=== PATIENT | female | born 1980 | race American Indian/Alaskan Native ===

== ENCOUNTER 2017-07-30 19:27 | Emergency (ER) | payer OTHER ==
[~2017-07-30] VITALS: Ht 177.8 cm; Wt 65.8 kg
[~2017-07-30 19:27] MED LIST: ACET325 PO; ACETAMINOPHEN; ALBU.083IS IH; ALBU8HFA2 INH; ALBU90OI INH; AMOCLA500 PO; AMOCLA875 PO; ARIP10 PO; AZIT250; AZIT250 PO; BENTYL10 MG; BENTYL20 MG PO; BENZ100A PO; BIRTH CONTROL PILLS PO; BUPR75 PO; BUSP10; BUSP15; BUTONI; CAFFEI; CELE100; CELE200; CEPH500 PO; CETI10 PO; CETI5; CETI5 PO; CETIRIZINE; CIPR500 PO; CLON.3; CLON.5; CLON.5 PO; CLON1; CLON2; CODACE30 PO; CODACE60; CODBUTASA PO; COUGH MED; CRUTCH3 USE; CRUTCH4 USE; CYCL10; CYCL10 PO; Cipro500 MG PO; DIAZ10; DIAZ5; DIAZ5 PO; DIPATR PO; DIPH50 PO; DOXY100 PO; DULO30; DULO30 PO; DULO60; DULO60 PO; EPIN.3I IM; Epipen0.3 MG/0.3 IM; FAMO20 PO; FLUC150A PO; FLUT110OIA IH; FLUT220OIA IH; FLUT220OIA INH; Flovent Disku100 MCG INH; Flovent Disku250 MCG; GABA100; GABA300; GABA300 PO; GABA600 PO; GARCINIA CAMBO1 EACH; HYDACE5 PO; HYDACE7.5 PO; HYDHCL25 PO; HYDMOR2 PO; HYDMOR4; HYDR1TAB94 PO; HYOS.125 SL; IBUP200; IBUP600 PO; IBUP800; IBUP800 PO; KETO10 PO; LEVE500 PO; LOPE2C PO; LORA1 PO; MAGCIT300 PO; MAXALT PO; MECL12.5; MECL25; MECL25 PO; MEDR10 PO; MEDR5 PO; MELA3 MT; METH10; METO5A; METPRE4DP PO; MIRALAX17 GM; MONT10T; MONT10T PO; MONT5TCH PO; MULVITMIND PO; MULVITMINE; MULVITMINE PO; Mobic15 MG PO; Monodox100 MG PO; NAPR250; NAPR500 PO; NAPR500EC PO; NIFE20; NIFE30ER PO; NITR100CA PO; NORFLEX PO; OMEP20ER PO; OMEP40CA12 PO; ONDA4 PO; ONDA4ODT MM; ONDA8 PO; OSEL75CA PO; OXYACE10; OXYACE10 PO; OXYACE5T; OXYACE5T PO; OXYACE7.5T PO; Omeprazole20 M1; Omeprazole20 M1 PO; PARO20; PENVK500 PO; PHENA200 PO; PRAM.125; PRED20; PRED20 PO; PREG50; PREG75 PO; PROACE100 PO; PROC10 PO; PROC5 PO; PROM25; PROM25 PO; PROM25S PR; PROP10 PO; PROPRANOLOL PO; Pepcid20 MG PO; Prednisone20 MG PO; RANI150; RANI150 PO; RXCODACET PO; RXCYCL10 PO; RXHYDMOR2 PO; RXOXYACE PO; RXPROM25 PO; SERT50 PO; SOMA350 MG; SOMA350 MG PO; SUBOXONE 8 MG-1 EACH SL; SUCR1 PO; SULTRIDS PO; Sudogest30 MG PO; TAMS.4ER PO; TOBR.3OPSO OP; TOPI100 PO; TOPI25 PO; TRAM50; TRAM50 PO; TRAZ100; TRAZ100 PO; TRAZ50 PO; VENL37.5; VENL37.5ER; VENL75ER; Ventolin Soln3 ML INH; Ventolin/Prove6.7 GM INH; Vibramycin100 MG PO; ZALE5 PO; ZOLP10; ZOLP10 PO; Zithromax250 MG PO; Zofran Odt4 MG SL; Zofran4 MG PO; [UNRECOGNIZED DRUG - OTHER]
[2017-07-30] MEDS ORDERED: SUBOXONE 12 MG1 EACH SL (20:14)
[2017-07-30] MEDS ORDERED: NAPR220 PO (20:14)
[2017-07-30] MEDS ORDERED: PENVK500 PO (20:53)
[2018-03-26] MEDS ORDERED: Bactrim Ds Tab1 EACH PO (09:38)
[2018-03-26] MEDS ORDERED: KETO10 PO (09:38)
[2018-03-26] MEDS ORDERED: Zofran Odt4 MG SL (09:38)
[2018-03-31] MEDS ORDERED: Cipro500 MG PO (15:06)
== END 2017-07-30 20:57 | disposition home or self-care (01) ==
LOC: ER 19:27
DX: K08.89 Other specified disorders of teeth and supporting structures (principal); Z91.030 Bee allergy status; Z88.8 Allergy status to other drugs, medicaments and biological substances; Z79.899 Other long term (current) drug therapy; G43.909 Migraine, unspecified, not intractable, without status migrainosus; J45.909 Unspecified asthma, uncomplicated; F17.200 Nicotine dependence, unspecified, uncomplicated
CPT/HCPCS: 99282

== ENCOUNTER → 2018-01-23 | Outpatient (CLI) | payer OTHER ==
[~2018-01-23] MED LIST changes: +NAPR220 PO; +SUBOXONE 12 MG1 EACH SL
[2018-01-23 16:25] LABS: Source, Urine Clean Catch
[2018-01-23 18:17] LABS: Appearance, Urine Clear (Clear); Bilirubin, Urine Neg (Neg); Blood, Urine Neg (Neg); Color, Urine Yellow (P-Yellow); Glucose Qualitative, Urine Neg (Neg); Ketones, Urine Neg (Neg); Leukocyte Esterase, Urine Neg (Neg); Nitrite, Urine Neg (Neg); Protein, Urine 1+ (Neg); Urobilinogen, Urine 1+ (Normal)
== END | disposition home or self-care (01) ==
LOC: LAB SHORT 13:19 → LAB 13:19
PROVIDERS: Obstetrics & Gynecology
DX: Z09 Encounter for follow-up examination after completed treatment for conditions other than malignant neoplasm (principal); Z87.442 Personal history of urinary calculi
CPT/HCPCS: 81003

== ENCOUNTER 2018-07-06 12:24 | Emergency (ER) | payer BC, OTHER ==
[~2018-07-06] VITALS: Ht 177.8 cm; Wt 56.7 kg
[~2018-07-06 12:24] MED LIST changes: +Bactrim Ds Tab1 EACH PO
[2018-07-06 13:16] LABS: Source, Urine Clean Catch
[2018-07-06 13:22] LABS: Alanine Aminotransfer (ALT/SGP 19 U/L (12-78); Albumin, Blood 3.8 g/dL (3.4-5.0); Albumin/Globulin Ratio 1.2 (0.8-1.8); Alk Phos 54 U/L (50-136); Anion Gap 5 mmol/L (6-16); Aspartate Aminotrans (AST/SGOT 17 U/L (12-37); Bilirubin, Total 0.3 mg/dL (0.1-1.0); Blood Urea Nitrogen 13 mg/dL (8-24); Bun/Creatinine Ratio 16.3 (12.0-20.0); CO2, Blood 28 mmol/L (21-32); Calcium, Blood 7.8 mg/dL (8.5-10.1); Chloride, Blood 109 mmol/L (98-108); Globulin, Blood 3.3 g/dL (2.2-4.0); Glomerular Filtration Rate >60 (60-); Glucose, Blood 52 mg/dL (70-99); Potassium, Blood 3.4 mmol/L (3.5-5.5); Sodium, Blood 142 mmol/L (136-145); Total Protein, Blood 7.1 g/dL (6.4-8.2)
[2018-07-06 13:29] LABS: BASOPHILS ABSOLUTE AUTO 0.05 K/mm3 (0.00-0.23); BASOPHILS PERCENT AUTO 1 % (0-2); EOSINOPHILS ABSOLUTE AUTO 0.73 K/mm3 (0.00-0.68); EOSINOPHILS PERCENT AUTO 12 % (0-6); Hematocrit 39.2 % (33.0-51.0); Hemoglobin 12.3 g/dL (11.5-16.0); IMMATURE GRAN ABSOLUTE AUTO 0.01 K/mm3 (0.00-0.10); IMMATURE GRAN PERCENT AUTO 0 % (0-1); LYMPHOCYTES ABSOLUTE AUTO 2.67 K/mm3 (0.84-5.20); LYMPHOCYTES PERCENT AUTO 42 % (21-46); MONOCYTES ABSOLUTE AUTO 0.47 K/mm3 (0.16-1.47); MONOCYTES PERCENT AUTO 8 % (4-13); Mean Corpuscular HGB 26.7 pg (26.0-34.0); Mean Corpuscular HGB Conc 31.4 g/dL (31.5-36.5); Mean Corpuscular Volume 85 fL (80-100); Mean Platelet Volume 10.8 fL (9.1-12.4); NEUTROPHILS ABSOLUTE AUTO 2.37 K/mm3 (1.96-9.15); NEUTROPHILS PERCENT AUTO 38 % (41-73); Platelet Count 213 K/mm3 (150-400); RDW Coefficient Variation 12.7 % (11.7-14.2); RDW Standard Deviation 38.8 fL (35.1-46.3)
[2018-07-06 13:33] LABS: Appearance, Urine Clear (Clear); Bilirubin, Urine Neg (Neg); Blood, Urine Neg (Neg); Color, Urine Yellow (P-Yellow); Glucose Qualitative, Urine Neg (Neg); Ketones, Urine Neg (Neg); Leukocyte Esterase, Urine Neg (Neg); Nitrite, Urine Neg (Neg); Protein, Urine 1+ (Neg); Urobilinogen, Urine 1+ (Normal); pH, Urine 6.5 (5.0-8.0)
[2018-07-06] MEDS ORDERED: Dulcolax5 MG PO (15:24)
== END 2018-07-06 15:43 | disposition home or self-care (01) ==
LOC: ER 12:24
PROVIDERS: Physician Assistant
DX: N83.202 Unspecified ovarian cyst, left side (principal); G40.909 Epilepsy, unspecified, not intractable, without status epilepticus; F32.9 Major depressive disorder, single episode, unspecified; K21.9 Gastro-esophageal reflux disease without esophagitis; J45.909 Unspecified asthma, uncomplicated; F17.200 Nicotine dependence, unspecified, uncomplicated; Z87.442 Personal history of urinary calculi; Z79.899 Other long term (current) drug therapy
CPT/HCPCS: 36415; 74018; 76830; 76856; 80053; 84703; 85025; 96374; 96375; 99284-25; J1885; J2405

== ENCOUNTER 2019-08-30 19:46 | Emergency (ER) | payer BC ==
[~2019-08-30] VITALS: Ht 177.8 cm; Wt 70.3 kg
[~2019-08-30 19:46] MED LIST changes: +Dulcolax5 MG PO
[2019-08-30] MEDS ORDERED: DESV50 PO (19:54)
[2019-08-30 20:43] LABS: BASOPHILS ABSOLUTE AUTO 0.05 K/mm3 (0.00-0.23); BASOPHILS PERCENT AUTO 1 % (0-2); EOSINOPHILS ABSOLUTE AUTO 1.27 K/mm3 (0.00-0.68); EOSINOPHILS PERCENT AUTO 18 % (0-6); Hematocrit 38.9 % (33.0-51.0); Hemoglobin 12.3 g/dL (11.5-16.0); IMMATURE GRAN ABSOLUTE AUTO 0.01 K/mm3 (0.00-0.10); IMMATURE GRAN PERCENT AUTO 0 % (0-1); LYMPHOCYTES ABSOLUTE AUTO 2.99 K/mm3 (0.84-5.20); LYMPHOCYTES PERCENT AUTO 42 % (21-46); MONOCYTES ABSOLUTE AUTO 0.44 K/mm3 (0.16-1.47); MONOCYTES PERCENT AUTO 6 % (4-13); Mean Corpuscular HGB 26.9 pg (26.0-34.0); Mean Corpuscular HGB Conc 31.6 g/dL (31.5-36.5); Mean Corpuscular Volume 85 fL (80-100); NEUTROPHILS ABSOLUTE AUTO 2.45 K/mm3 (1.96-9.15); NEUTROPHILS PERCENT AUTO 34 % (41-73); Platelet Count 208 K/mm3 (150-400); RDW Coefficient Variation 13.1 % (11.7-14.2); RDW Standard Deviation 40.7 fL (35.1-46.3); Red Blood Cell Count 4.57 M/mm3 (3.80-5.20); White Blood Cell Count 7.21 K/mm3 (4.00-11.30)
[2019-08-30 21:02] LABS: Alanine Aminotransfer (ALT/SGP 19 U/L (12-78); Albumin, Blood 3.5 g/dL (3.4-5.0); Albumin/Globulin Ratio 1.1 (0.8-1.8); Alk Phos 50 U/L (50-136); Anion Gap 4 mmol/L (6-16); Aspartate Aminotrans (AST/SGOT 22 U/L (12-37); Bilirubin, Total 0.2 mg/dL (0.1-1.0); Blood Urea Nitrogen 11 mg/dL (8-24); Bun/Creatinine Ratio 17.3 (12.0-20.0); CO2, Blood 29 mmol/L (21-32); Calcium, Blood 8.3 mg/dL (8.5-10.1); Chloride, Blood 107 mmol/L (98-108); Creatinine, Blood 0.64 mg/dL (0.40-1.00); Globulin, Blood 3.3 g/dL (2.2-4.0); Glomerular Filtration Rate >60 (60-); Glucose, Blood 101 mg/dL (70-99); Potassium, Blood 3.7 mmol/L (3.5-5.5); Sodium, Blood 140 mmol/L (136-145); Total Protein, Blood 6.8 g/dL (6.4-8.2)
[2019-08-30] MEDS ORDERED: ALBU90OI INH (21:13)
[2019-08-30] MEDS ORDERED: ONDA4ODT MM (21:13)
== END 2019-08-30 21:20 | disposition home or self-care (01) ==
LOC: ER 19:46
PROVIDERS: Nurse Practitioner
DX: J06.9 Acute upper respiratory infection, unspecified (principal); J45.909 Unspecified asthma, uncomplicated; F17.200 Nicotine dependence, unspecified, uncomplicated; Z88.1 Allergy status to other antibiotic agents; Z88.5 Allergy status to narcotic agent; Z88.8 Allergy status to other drugs, medicaments and biological substances; Z91.030 Bee allergy status; Z79.899 Other long term (current) drug therapy
CPT/HCPCS: 36415; 71046; 80053; 85025; 96374; 99283-25; J2405

== ENCOUNTER → 2019-10-20 | Outpatient (CLI) | payer BC ==
[~2019-10-20] MED LIST changes: +DESV50 PO
[2019-10-20 12:12] LABS: Appearance, Urine Hazy (Clear); Bilirubin, Urine Neg (Neg); Blood, Urine 2+ (Neg); Color, Urine Yellow (P-Yellow); Glucose Qualitative, Urine Neg (Normal); Ketones, Urine Neg (Neg); Leukocyte Esterase, Urine Neg (Neg); Nitrite, Urine Neg (Neg); Protein, Urine Neg (Neg); Specific Gravity, Urine 1.015 (1.003-1.022); Urobilinogen, Urine 1+ (Normal)
[2019-10-20 12:13] LABS: Bacteria Few /hpf; Red Blood Cells, Urine 50-100 /hpf (0-2); Squamous Epithelial Cells Few /hpf (Few); White Blood Cells, Urine 0-2 /hpf (0-5)
== END | disposition home or self-care (01) ==
LOC: LAB SHORT 11:45 → LAB EV 11:45
PROVIDERS: Family Medicine
DX: R31.9 Hematuria, unspecified (principal)
CPT/HCPCS: 81001; 87086

== ENCOUNTER 2019-12-06 20:04 | Emergency (ER) | payer BC ==
[~2019-12-06] VITALS: Ht 177.8 cm; Wt 70.3 kg
[2019-12-06 20:43] LABS: BASOPHILS ABSOLUTE AUTO 0.06 K/mm3 (0.00-0.23); BASOPHILS PERCENT AUTO 1 % (0-2); EOSINOPHILS ABSOLUTE AUTO 0.94 K/mm3 (0.00-0.68); EOSINOPHILS PERCENT AUTO 12 % (0-6); Hematocrit 39.9 % (33.0-51.0); Hemoglobin 12.5 g/dL (11.5-16.0); IMMATURE GRAN ABSOLUTE AUTO 0.02 K/mm3 (0.00-0.10); IMMATURE GRAN PERCENT AUTO 0 % (0-1); LYMPHOCYTES ABSOLUTE AUTO 3.08 K/mm3 (0.84-5.20); LYMPHOCYTES PERCENT AUTO 39 % (21-46); MONOCYTES ABSOLUTE AUTO 0.54 K/mm3 (0.16-1.47); MONOCYTES PERCENT AUTO 7 % (4-13); Mean Corpuscular HGB 26.5 pg (26.0-34.0); Mean Corpuscular HGB Conc 31.3 g/dL (31.5-36.5); Mean Corpuscular Volume 85 fL (80-100); Mean Platelet Volume 11.1 fL (9.1-12.4); NEUTROPHILS ABSOLUTE AUTO 3.24 K/mm3 (1.96-9.15); NEUTROPHILS PERCENT AUTO 41 % (41-73); Platelet Count 207 K/mm3 (150-400); RDW Coefficient Variation 13.5 % (11.7-14.2); Red Blood Cell Count 4.71 M/mm3 (3.80-5.20); White Blood Cell Count 7.88 K/mm3 (4.00-11.30)
[2019-12-06 21:01] LABS: Alanine Aminotransfer (ALT/SGP 33 U/L (12-78); Albumin, Blood 3.6 g/dL (3.4-5.0); Alk Phos 89 U/L (50-136); Anion Gap 4 mmol/L (6-16); Aspartate Aminotrans (AST/SGOT 29 U/L (12-37); Bilirubin, Total 0.2 mg/dL (0.1-1.0); Blood Urea Nitrogen 11 mg/dL (8-24); Bun/Creatinine Ratio 14.8 (12.0-20.0); CO2, Blood 31 mmol/L (21-32); Calcium, Blood 8.1 mg/dL (8.5-10.1); Chloride, Blood 107 mmol/L (98-108); Creatinine, Blood 0.74 mg/dL (0.40-1.00); Globulin, Blood 3.6 g/dL (2.2-4.0); Glomerular Filtration Rate >60 (60-); Glucose, Blood 78 mg/dL (70-99); Potassium, Blood 3.8 mmol/L (3.5-5.5); Sodium, Blood 142 mmol/L (136-145); Total Protein, Blood 7.2 g/dL (6.4-8.2)
[2019-12-06 21:47] LABS: Source, Urine Clean Catch
[2019-12-06 21:54] LABS: Bilirubin, Urine Neg (Neg); Blood, Urine Neg (Neg); Glucose Qualitative, Urine Neg (Neg); Ketones, Urine Neg (Neg); Leukocyte Esterase, Urine Neg (Neg); Nitrite, Urine Neg (Neg); Protein, Urine Neg (Neg); Specific Gravity, Urine 1.025 (1.003-1.022); Urobilinogen, Urine NORM (Normal)
[2019-12-06 21:59] LABS: Appearance, Urine Clear (Clear); Color, Urine Yellow (P-Yellow)
== END 2019-12-06 22:40 | disposition home or self-care (01) ==
LOC: ER 20:04
PROVIDERS: Emergency Medicine
DX: R10.9 Unspecified abdominal pain (principal); Z88.1 Allergy status to other antibiotic agents; Z91.030 Bee allergy status; Z88.8 Allergy status to other drugs, medicaments and biological substances; Z87.891 Personal history of nicotine dependence
CPT/HCPCS: 36415; 76770; 80053; 81003; 81025; 83690; 85025; 96361; 96374; 96375; 99284-25; J1885; J2405; J7030

== ENCOUNTER → 2021-02-03 | Outpatient (CLI) | payer OTHER | END | disposition home or self-care (01) | LOC: LAB 20:06 → LAB SHORT 20:06 | DX: Z20.822 Contact with and (suspected) exposure to COVID-19 (principal) | CPT/HCPCS: U0003 ==

== ENCOUNTER 2022-01-27 06:32 | Emergency (ER) | payer OTHER ==
[~2022-01-27] VITALS: Ht 177.8 cm; Wt 86.2 kg
[2022-01-27] MEDS ORDERED: ABILIFY5 MG PO (07:53)
[2022-01-27 08:06] LABS: Source, Urine Clean Catch
[2022-01-27 08:11] LABS: Appearance, Urine Hazy (Clear); Bilirubin, Urine Neg (Neg); Blood, Urine 5+ (Neg); Color, Urine Yellow (P-Yellow); Glucose Qualitative, Urine Neg (Neg); Ketones, Urine Neg (Neg); Leukocyte Esterase, Urine 3+ (Neg); Nitrite, Urine Neg (Neg); Protein, Urine 2+ (Neg); Urobilinogen, Urine NORM (Normal)
[2022-01-27 08:29] LABS: Bacteria Mod /hpf; Red Blood Cells, Urine TNTC /hpf (0-2); Squamous Epithelial Cells Few /hpf (Few); White Blood Cells, Urine TNTC /hpf (0-5)
[2022-01-27] MEDS ORDERED: NITR100CA PO (09:36)
== END 2022-01-27 09:46 | disposition home or self-care (01) ==
LOC: ER 06:32
PROVIDERS: Emergency Medicine
DX: N39.0 Urinary tract infection, site not specified (principal); Z91.030 Bee allergy status; Z88.1 Allergy status to other antibiotic agents; Z88.8 Allergy status to other drugs, medicaments and biological substances; Z79.899 Other long term (current) drug therapy; Z87.891 Personal history of nicotine dependence
CPT/HCPCS: 74176; 81001; 87086; 99284-25; A9270

== ENCOUNTER 2022-02-05 05:28 | Emergency (ER) | payer OTHER ==
[~2022-02-05] VITALS: Ht 177.8 cm; Wt 88.5 kg
[~2022-02-05 05:28] MED LIST changes: +ABILIFY5 MG PO
[2022-02-05 05:51] LABS: Source, Urine Voided
[2022-02-05 06:07] LABS: Appearance, Urine Hazy (Clear); Bilirubin, Urine Neg (Neg); Blood, Urine 4+ (Neg); Color, Urine Red (P-Yellow); Glucose Qualitative, Urine Neg (Neg); Ketones, Urine Neg (Neg); Leukocyte Esterase, Urine 1+ (Neg); Nitrite, Urine Neg (Neg); Protein, Urine 4+ (Neg); Specific Gravity, Urine 1.015 (1.003-1.022); Urobilinogen, Urine NORM (Normal)
[2022-02-05 06:41] LABS: Bacteria Few /hpf; Red Blood Cells, Urine TNTC /hpf (0-2); Squamous Epithelial Cells Not Seen /hpf (Few); White Blood Cells, Urine TNTC /hpf (0-5)
[2022-02-05] MEDS ORDERED: SULTRIDS PO (08:54)
[2022-02-05] MEDS ORDERED: PHENA200 PO (08:54)
== END 2022-02-05 09:45 | disposition home or self-care (01) ==
LOC: ER 05:28
PROVIDERS: Emergency Medicine
DX: N30.91 Cystitis, unspecified with hematuria (principal); Z91.030 Bee allergy status; Z88.1 Allergy status to other antibiotic agents; Z88.8 Allergy status to other drugs, medicaments and biological substances; Z79.899 Other long term (current) drug therapy; Z87.891 Personal history of nicotine dependence
CPT/HCPCS: 74176; 81001; 81025; A9270; J1885

== ENCOUNTER 2022-02-21 14:09 | Emergency (ER) | payer OTHER ==
[~2022-02-21] VITALS: Ht 177.8 cm; Wt 90.7 kg
== END 2022-02-21 16:49 | disposition home or self-care (01) ==
LOC: ER 14:09
DX: S09.90XA Unspecified injury of head, initial encounter (principal); S16.1XXA Strain of muscle, fascia and tendon at neck level, initial encounter; S70.01XA Contusion of right hip, initial encounter; J45.909 Unspecified asthma, uncomplicated; W01.0XXA Fall on same level from slipping, tripping and stumbling without subsequent striking against object, initial encounter; Y92.828 Other wilderness area as the place of occurrence of the external cause; Y99.0 Civilian activity done for income or pay; Z88.5 Allergy status to narcotic agent; Z88.8 Allergy status to other drugs, medicaments and biological substances; Z88.1 Allergy status to other antibiotic agents; Z91.038 Other insect allergy status; Z79.899 Other long term (current) drug therapy
CPT/HCPCS: 70450

== ENCOUNTER 2022-05-23 21:38 | Emergency (ER) | payer OTHER ==
[~2022-05-23] VITALS: Ht 180.3 cm; Wt 92.9 kg
[2022-05-23 22:49] LABS: Source, Urine Clean Catch
[2022-05-23 22:59] LABS: Appearance, Urine Clear (Clear); Bilirubin, Urine Neg (Neg); Blood, Urine 3+ (Neg); Glucose Qualitative, Urine Neg (Neg); Ketones, Urine Neg (Neg); Leukocyte Esterase, Urine 2+ (Neg); Nitrite, Urine Neg (Neg); Protein, Urine 1+ (Neg); Urobilinogen, Urine NORM (Normal)
[2022-05-23 23:22] LABS: Color, Urine Pale Yellow (P-Yellow)
[2022-05-23 23:25] LABS: Bacteria Few /hpf; Red Blood Cells, Urine 0-2 /hpf (0-2); Squamous Epithelial Cells Rare /hpf (Few)
[2022-05-23] MEDS ORDERED: Bactrim Ds Tab1 EACH PO (23:28)
[2022-05-23] MEDS ORDERED: Pyridium100 MG PO (23:29)
== END 2022-05-23 23:42 | disposition home or self-care (01) ==
LOC: ER 21:38
PROVIDERS: Physician Assistant
DX: N39.0 Urinary tract infection, site not specified (principal); J45.909 Unspecified asthma, uncomplicated; G43.909 Migraine, unspecified, not intractable, without status migrainosus; Z91.030 Bee allergy status; Z88.1 Allergy status to other antibiotic agents; Z88.8 Allergy status to other drugs, medicaments and biological substances; Z79.899 Other long term (current) drug therapy; Z87.891 Personal history of nicotine dependence
CPT/HCPCS: 81001; A9270

== ENCOUNTER → 2023-01-08 | Outpatient (CLI) | payer OTHER ==
[~2023-01-08] MED LIST changes: +Pyridium100 MG PO
== END ==
LOC: LAB 09:53 → LAB SHORT 09:53
DX: N39.0 Urinary tract infection, site not specified (principal)
CPT/HCPCS: 87077; 87086; 87186

== ENCOUNTER → 2023-05-23 | Outpatient (CLI) | payer OTHER | END | disposition home or self-care (01) | LOC: LAB SHORT 15:57 → LAB 15:57 | DX: N39.0 Urinary tract infection, site not specified (principal) | CPT/HCPCS: 87077; 87086; 87186 ==

== ENCOUNTER → 2024-03-17 | Outpatient (CLI) | payer SELFPAY ==
[~2024-03-17] MED LIST changes: +EPIPEN0.3 MG/0.3 IM
== END ==
LOC: LAB 08:35 → LAB SHORT 08:35
DX: N39.0 Urinary tract infection, site not specified (principal)
CPT/HCPCS: 87086